=== PATIENT | male | born 1965 | race Caucasian/White ===

== ENCOUNTER 2020-12-30 10:49 | Inpatient (IN) | payer BC, SELFPAY ==
[2020-12-30] VITALS (10 sets, daily range): BP systolic 108–189; BP diastolic 53–143; PULSE 63–93; RESP 12–18; O2SAT 95–98; BMI 22.4
--- NOTE | ~2020-12-30 | MR_ITS ---
EXAMINATION: MR BRAIN WITHOUT AND WITH CONTRAST CLINICAL INFORMATION: Pituitary fullness. COMPARISON: CT head from 12/30/2020 the TECHNIQUE: MRI of the brain was obtained using routine sequences without and following the administration of 3.5 mL of Gadavist intravenous contrast. FINDINGS: No focal restricted diffusion is demonstrated to suggest acute or subacute cerebral ischemia. No evidence of acute or chronic hemorrhagic products on heme-sensitive imaging. Scattered periventricular and deep white matter T2 FLAIR hyperintensities most commonly seen with mild underlying microangiopathy. The ventricles are normal in morphology and size. No abnormal mass effect. No midline shift. The pituitary gland measures 0.8 cm in craniocaudal dimension. Mild convex superior margin of the pituitary gland. Otherwise, normal morphology and signal intensity of the pituitary gland on precontrast imaging. An inherently T1 hyperintense nodule within the posterior sella turcica is located in the expected location of the posterior pituitary bright spot but also appears mildly prominent. No demonstrated abnormal hyperenhancing or hypoenhancing lesions demonstrated on post contrast imaging. The pituitary infundibulum is normal in morphology and remains midline in position. The suprasellar cistern remains patent. No abnormal mass effect on the optic chiasm. Normal positioning of the cerebellar tonsils. Normal arterial and venous vascular flow voids are present. No abnormal contrast enhancement. Normal, homogeneous marrow signal. Moderate mucosal thickening of the paranasal sinuses. Most notably involving the right frontal and maxillary sinuses. Multiple mucus retention cyst within the right maxillary sinus. No signal abnormalities within the mastoids. MR/MR head/brain wo/w con IMPRESSION: 1. The pituitary gland is mildly prominent but otherwise morphologically normal without abnormal signal characteristics or demonstrated discrete lesions. 2. No acute intracranial abnormalities. No abnormal intracranial enhancement. 3. Mild chronic white matter changes most commonly seen in the setting of underlying microangiopathy. 4. Moderate sinonasal mucosal disease, most notably affecting the right frontal and maxillary sinuses.
--- NOTE | ~2020-12-30 | CT_ITS ---
EXAMINATION: CT HEAD WITHOUT CONTRAST CLINICAL INFORMATION: Hypertension with headache. COMPARISON: None TECHNIQUE: Contiguous axial imaging was performed from the skull base to vertex without intravenous administration of contrast. Additional 2-D coronal and sagittal reformatted images are generated on the CT workstation and uploaded to PACS. This CT examination was performed using dose optimization techniques as appropriate, variously including the following: *Automated exposure control *Adjustment of mA and/or kV according to patient size (this includes techniques or standardized protocols for targeted exams where dose is matched to indication/reason for exam; i.e. extremities or head) *Use of iterative reconstruction technique DLP: 641 mGy-cm FINDINGS: There is no intracranial hemorrhage, hematoma, or extra-axial fluid collection. The ventricles are normal in size. There is no hydrocephalus, edema, or mass effect. There is oval cystic area central right frontal lobe white matter with long axis pointed towards the frontal horn right lateral ventricle and overall size 0.5 x 1.0 cm. Finding is nonspecific, possibly perivascular space. The periventricular white matter is otherwise unremarkable. There is no visible acute territorial infarct. The pituitary appears fall with superior convexity and extending laterally towards the left cavernous sinus. There is incidental tonsillar ectopia suggested on the sagittal images. The calvarium appears intact. There is no pneumocephalus or orbital emphysema. There is scattered mucosal thickening throughout the ethmoid sinuses and mild mucosal thickening throughout the sphenoid. Probable retention cyst present within right maxillary sinus approximately 2.0 x 1.5 cm. The middle ears and mastoids appear clear. Results and recommendation are called and discussed with emergency department (Jax Kumar PA-C) at [address]/CT head/brain wo con IMPRESSION: 1. Fullness pituitary gland. Cystic lesion central right frontal lobe long axis toward right frontal horn, possibly perivascular space. Recommend further evaluation with brain MRI without and with gadolinium contrast using pituitary protocol. 2. Mucosal thickening paranasal sinuses. 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 No air-fluid levels. 3.No intracranial hemorrhage, hydrocephalus, or mass effect.
--- NOTE | 2020-12-30 12:23 | ED.GENADULT ---
HPI - General Adult General Chief complaint: General Medical <TIM Patricia Last Filed: 12/30/20 19:27> Stated complaint: high blood pressure <TIM Patricia Last Filed: 12/30/20 19:27> Time Seen by Provider: 12/30/20 12:06 <ITM Patricia Last Filed: 12/30/20 19:27> Source: patient <TIM Patricia Last Filed: 12/30/20 19:27> Mode of arrival: ambulatory <TIM Patricia Last Filed: 12/30/20 19:27> Limitations: no limitations <TIM Patricia Last Filed: 12/30/20 19:27> History of Present Illness HPI narrative: Patient presents to ED for headache for the past 2 days with nausea. Patient went to urgent care this morning and found to have blood pressure was really elevated. Patient states he was recently diagnosed with high blood pressure 5 months ago by his PCP did not put him on any medication. Patient denies any chest pain, shortness of breath, vomiting, neck pain, fever, chills, slurred speech, loss of vision, paralysis of extremities, or dizziness. <TIM Patricia Last Filed: 12/30/20 19:27> Related Data Home medications: Home Medications Medication Instructions Recorded Confirmed No Known Home Meds 12/30/20 12/30/20 <ITM Patricia Last Filed: 12/30/20 19:27> Allergies/adverse reactions: Allergies Allergy/AdvReac Type Severity Reaction Status Date / Time No Known Allergies Allergy Unverified 07/25/20 16:32 <TIM Patricia Last Filed: 12/30/20 19:27> Review of Systems Review of Systems: Yes all other systems are reviewed and are negative <TIM Patricia Last Filed: 12/30/20 19:27> Constitutional: Constitutional: Reports as per HPI, Reports no additional constitutional complaints and Reports headache(s) <TIM Patricia Last Filed: 12/30/20 19:27> Eyes: Eyes: Reports as per HPI and Reports no additional eye complaints <TIM Patricia Last Filed: 12/30/20 19:27> ENT: Reports system reviewed and no additional complaints, except as documented, Reports as per HPI and Reports headache(s) <TIM Patricia Last Filed: 12/30/20 19:27> Cardiovascular: Cardiovascular: Reports as per HPI and Reports no additional cardiovascular complaints <TIM Patricia Last Filed: 12/30/20 19:27> Respiratory: Respiratory: Reports as per HPI and Reports no additional respiratory complaints <TIM Patricia Last Filed: 12/30/20 19:27> Gastrointestinal: Gastrointestinal: Reports as per HPI, Reports no additional gastrointestinal complaints and Reports nausea <TIM Patricia Last Filed: 12/30/20 19:27> Genitourinary: Genitourinary: Reports no additional male genitourinary complaints and Reports as per HPI <TIM Patricia Last Filed: 12/30/20 19:27> Musculoskeletal: Musculoskeletal: Reports no additional musculoskeletal complaints and Reports as per HPI <TIM Patricia Last Filed: 12/30/20 19:27> Neurologic: Reports system reviewed and no additional complaints, except as documented, Reports as per HPI and Reports headache(s) <TIM Patricia Last Filed: 12/30/20 19:27> Psychiatric: Psychiatric: Reports no additional psychiatric complaints and Reports as per HPI <TIM Patricia Last Filed: 12/30/20 19:27> [facility] Past Medical History Surgical History: Surgical History (Updated 12/30/20 @ 17:27 by Keara Helms NP) History of esophagogastroduodenoscopy (EGD) <TIM Patricia Last Filed: 12/30/20 19:27> Social History Social History: Social History Alcohol intake: current Alcohol intake frequency: 0-2 drinks per day Smoking Status: Former smoker Use of substances other than those prescribed or required for medical reasons: No Advance Directives: No Advance Directives Information Provided: No <TIM Patricia Last Filed: 12/30/20 19:27> Physical Exam Vital Signs: Vital Signs: Last Vital Signs Pulse 76 12/30/20 19:04 Resp 18 12/30/20 19:04 BP 115/73 12/30/20 19:04 Pulse Ox 96 12/30/20 19:04 Body Mass Index 22.4 <TIM Patricia - Last Filed: 12/30/20 19:27> Vital Signs: Last Vital Signs Pulse 76 12/30/20 19:04 Resp 18 12/30/20 19:04 BP 115/73 12/30/20 19:04 Pulse Ox 96 12/30/20 19:04 Body Mass Index 22.4 <Mack Barnhart MD - Last Filed: 12/30/20 14:51> Const: General: cooperative, healthy appearing, comfortable, no acute distress, well developed, alert, awake and Physically active <TIM Patricia - Last Filed: 12/30/20 19:27> Orientation/consciousness: patient oriented x3 <TIM Patricia - Last Filed: 12/30/20 19:27> HENMT: Head: Yes normal to inspection, Yes No palpable skull fracture present, Yes normocephalic, Yes atraumatic and No abrasion <TIM Patricia Last Filed: 12/30/20 19:27> Eyes: General: appearance normal, both eyes and all related structures <TIM Patricia - Last Filed: 12/30/20 19:27> Neck: Other: Negative carotid bruit <TIM Patricia - Last Filed: 12/30/20 19:27> Neck: Yes normal visual inspection, Yes full ROM, Yes no lymphadenopathy, Yes no meningeal signs, Yes trachea midline, Yes supple and No tender <TIM Patricia Last Filed: 12/30/20 19:27> Chest: Chest palpation & inspection: normal inspection of the chest and normal palpation of entire chest wall <TIM Patricia - Last Filed: 12/30/20 19:27> Resp: Effort & Inspection: normal respiratory effort and able to speak in complete sentences <TIM Patricia Last Filed: 12/30/20 19:27> Auscultation: clear to auscultation bilaterally <TIM Patricia - Last Filed: 12/30/20 19:27> Cardio: Jugular venous distension: no JVD <TIM Patricia Last Filed: 12/30/20 19:27> Heart sounds: S1 normal heart sound present and S2 normal heart sound present <TIM Patricia Last Filed: 12/30/20 19:27> GI: Inspection: Yes normal to inspection and No abdominal wall ecchymosis <TIM Patricia Last Filed: 12/30/20 19:27> Palpation (GI): Soft to palpation, not firm, nontender, no guarding and not rigid <TIM Patricia - Last Filed: 12/30/20 19:27> : General: No CVA tenderness and Yes no CVA tenderness <TIM Patricia - Last Filed: 12/30/20 19:27> Back/Spine/Pelvis: Back: no CVA tenderness, No CVA tenderness and No back tenderness <TIM Patricia - Last Filed: 12/30/20 19:27> Skin: General skin exam: no rashes or lesions noted and elasticity normal <TIM Patricia - Last Filed: 12/30/20 19:27> Neuro: Other: Negative for slurred speech. Negative facial droop. All extremities have equal strength and 5+. Negative Romberg. [id number] test intact <TIM Patricia - Last Filed: 12/30/20 19:27> General: patient oriented x3, gait normal, no meningeal signs and CN's II-XI intact bilaterally <TIM Patricia Last Filed: 12/30/20 19:27> Cranial nerves: Yes CN's II-XII intact bilaterally <TIM Patricia - Last Filed: 12/30/20 19:27> Extrem: General: Yes normal to inspection and Yes full ROM <TIM Patricia Last Filed: 12/30/20 19:27> Psych: Appearance: grossly normal, well kempt and not disheveled <TIM Patricia Last Filed: 12/30/20 19:27> Course Course Course Narrative: Patient will be evaluated for hypertensive emergency. Negative for any neuro deficit. Patient have head CT. EKG, and labs. Repeat blood pressure monitor is 178/118. We will give labetalol 10 mg IV. Also ordered Tylenol <TIM Patricia Last Filed: 12/30/20 19:27> I have discussed the case and management with the MARY <Mack Barnhart MD - Last Filed: 12/30/20 14:51> Reevaluation(s) Reevaluation #1: Blood pressure now 235/114. Clonidine ordered. EKG negative for STEMI. Awaiting head CT and lab results. <TIM Patricia - Last Filed: 12/30/20 19:27> Time: 14:34 <TIM Patricia - Last Filed: 12/30/20 19:27> Reevaluation #2: Blood pressure presently is 149/87. Patient will be admitted for hypertensive urgency. Radiologist called earlier visit for CT scan reading of fullness of fissure. He states MRI with and without contrast/pituitary protocol can be do outpatient, but due to patient be admitted that was ordered in the ED. Patient presently stable. Troponin negative. Hospitalist accepted cased <TIM Patricia - Last Filed: 12/30/20 19:27> Time: 16:26 <TIM Patricia - Last Filed: 12/30/20 19:27> Medical Decision Making MDM Narrative Medical decision making narrative: Hypertensive urgency <TIM Patricia - Last Filed: 12/30/20 19:27> Lab Data Result diagrams: : 12/30/20 13:59 12/30/20 13:59 <TIM Patricia - Last Filed: 12/30/20 19:27> Labs: Lab Results 12/30/20 12/30/20 12/30/20 Range/Units 13:59 13:59 13:59 WBC 10.2 (4.8-10.8) X10*3/uL RBC 5.94 H (4.60-5.80) X10*6/uL Hgb 16.7 (14.0-18.0) g/dl Hct 50.0 (42-52) % MCV 84.2 (80-98) fL MCH 28.1 (27.0-33.0) pg MCHC 33.4 (31.0-36.0) g/dl RDW 13.2 (11.0-16.0) % Plt Count 276 (160-400) X10*3/uL MPV 10.6 (9.4-12.4) fL Immature Gran % (Auto) 0.3 (0.0-0.4) % Neut % (Auto) 71.8 (45-73) % Lymph % (Auto) 21.2 (20-40) % [place] % (Auto) 5.9 (2-11) % Eos % (Auto) 0.4 (0-4) % Baso % (Auto) 0.4 (0-2) % Lymph # (Auto) 2.2 (1.2-4.9) X10*3/uL [place] # (Auto) 0.6 (0.1-1.2) X10*3/uL Eos # (Auto) 0.0 (0.0-0.4) X10*3/uL Baso # (Auto) 0.0 (0.0-0.2) X10*3/uL Abs Immat Gran (auto) 0.03 (0.00-0.03) X10*3/uL Absolute Neuts (auto) 7.3 (2.0-8.3) X10*3/uL Absolute Nucleated RBC 0.000 (0.0-0.012) X10*3/uL Nucleated RBC % (auto) 0.0 (0.0-0.2) /100WBC PT 12.0 (10.8-13.0) SEC INR 1.0 (0.9-1.1) APTT 46.3 H (24.1-38.0) SEC Sodium 141 (135-145) mmol/L Potassium 4.0 (3.3-5.1) mmol/L Chloride 103 (96-108) mmol/L Carbon Dioxide 27 (22-29) mmol/L Anion Gap 15 (12-20) BUN 20 H (9-16) mg/dL Creatinine 1.04 (0.5-1.4) mg/dL Estim Creat Clear Calc 86.9 Estimated GFR > 60 Random Glucose 101 (60-115) mg/dL Calcium 9.9 (8.4-10.2) mg/dL Total Bilirubin 0.6 (0.0-1.0) mg/dL AST 13 (5-37) U/L ALT 20 (0-40) U/L Alkaline Phosphatase 84 (39-117) U/L Troponin I High Sens (<3.5-35.0) ng/L Total Protein 7.6 (6.5-8.0) g/dL Albumin 4.6 (3.5-5.0) g/dL TSH 1.05 (0.32-4.0) uIU/mL Urine Color Urine Appearance Urine pH (5.0-8.0) Ur Specific [place] (1.005-1.025) Urine Protein (NEG-TRACE) MG/DL Urine Glucose (UA) (NEG) MG/DL Urine Ketones (NEG) MG/DL Urine Blood (NEG) Urine Nitrite (NEG) Ur Leukocyte Esterase (NEG) Urine RBC (0) /HPF Urine WBC (0-4) /HPF Ur Squamous Epith Cells /LPF Urine Bacteria /LPF Urine Mucus /LPF COVID-19 (LOUISE) (Negative) COVID-19 Clin Com 12/30/20 12/30/20 12/30/20 Range/Units 13:59 13:59 16:19 WBC (4.8-10.8) X10*3/uL RBC (4.60-5.80) X10*6/uL Hgb (14.0-18.0) g/dl Hct (42-52) % MCV (80-98) fL MCH (27.0-33.0) pg MCHC (31.0-36.0) g/dl RDW (11.0-16.0) % Plt Count (160-400) X10*3/uL MPV (9.4-12.4) fL Immature Gran % (Auto) (0.0-0.4) % Neut % (Auto) (45-73) % Lymph % (Auto) (20-40) % [place] % (Auto) (2-11) % Eos % (Auto) (0-4) % Baso % (Auto) (0-2) % Lymph # (Auto) (1.2-4.9) X10*3/uL [place] # (Auto) (0.1-1.2) X10*3/uL Eos # (Auto) (0.0-0.4) X10*3/uL Baso # (Auto) (0.0-0.2) X10*3/uL Abs Immat Gran (auto) (0.00-0.03) X10*3/uL Absolute Neuts (auto) (2.0-8.3) X10*3/uL Absolute Nucleated RBC (0.0-0.012) X10*3/uL Nucleated RBC % (auto) (0.0-0.2) /100WBC PT (10.8-13.0) SEC INR (0.9-1.1) APTT (24.1-38.0) SEC Sodium (135-145) mmol/L Potassium (3.3-5.1) mmol/L Chloride (96-108) mmol/L Carbon Dioxide (22-29) mmol/L Anion Gap (12-20) BUN (9-16) mg/dL Creatinine (0.5-1.4) mg/dL Estim Creat Clear Calc Estimated GFR Random Glucose (60-115) mg/dL Calcium (8.4-10.2) mg/dL Total Bilirubin (0.0-1.0) mg/dL AST (5-37) U/L ALT (0-40) U/L Alkaline Phosphatase (39-117) U/L Troponin I High Sens 4.9 (<3.5-35.0) ng/L Total Protein (6.5-8.0) g/dL Albumin (3.5-5.0) g/dL TSH (0.32-4.0) uIU/mL Urine Color YELLOW Urine Appearance HAZY Urine pH 6.0 (5.0-8.0) Ur Specific [place] >= 1.030 H (1.005-1.025) Urine Protein TRACE (NEG-TRACE) MG/DL Urine Glucose (UA) NEG (NEG) MG/DL Urine Ketones NEG (NEG) MG/DL Urine Blood 1+ H (NEG) Urine Nitrite NEG (NEG) Ur Leukocyte Esterase NEG (NEG) Urine RBC 5-9 H (0) /HPF Urine WBC 5-9 H (0-4) /HPF Ur Squamous Epith Cells NONE /LPF Urine Bacteria NONE /LPF Urine Mucus 3+ /LPF COVID-19 (LOUISE) Negative (Negative) COVID-19 Clin Com See Note <TIM Patricia - Last Filed: 12/30/20 19:27> Lab Results 12/30/20 12/30/20 12/30/20 Range/Units 13:59 13:59 13:59 WBC 10.2 (4.8-10.8) X10*3/uL RBC 5.94 H (4.60-5.80) X10*6/uL Hgb 16.7 (14.0-18.0) g/dl Hct 50.0 (42-52) % MCV 84.2 (80-98) fL MCH 28.1 (27.0-33.0) pg MCHC 33.4 (31.0-36.0) g/dl RDW 13.2 (11.0-16.0) % Plt Count 276 (160-400) X10*3/uL MPV 10.6 (9.4-12.4) fL Immature Gran % (Auto) 0.3 (0.0-0.4) % Neut % (Auto) 71.8 (45-73) % Lymph % (Auto) 21.2 (20-40) % [place] % (Auto) 5.9 (2-11) % Eos % (Auto) 0.4 (0-4) % Baso % (Auto) 0.4 (0-2) % Lymph # (Auto) 2.2 (1.2-4.9) X10*3/uL [place] # (Auto) 0.6 (0.1-1.2) X10*3/uL Eos # (Auto) 0.0 (0.0-0.4) X10*3/uL Baso # (Auto) 0.0 (0.0-0.2) X10*3/uL Abs Immat Gran (auto) 0.03 (0.00-0.03) X10*3/uL Absolute Neuts (auto) 7.3 (2.0-8.3) X10*3/uL Absolute Nucleated RBC 0.000 (0.0-0.012) X10*3/uL Nucleated RBC % (auto) 0.0 (0.0-0.2) /100WBC PT 12.0 (10.8-13.0) SEC INR 1.0 (0.9-1.1) APTT 46.3 H (24.1-38.0) SEC Sodium 141 (135-145) mmol/L Potassium 4.0 (3.3-5.1) mmol/L Chloride 103 (96-108) mmol/L Carbon Dioxide 27 (22-29) mmol/L Anion Gap 15 (12-20) BUN 20 H (9-16) mg/dL Creatinine 1.04 (0.5-1.4) mg/dL Estim Creat Clear Calc 86.9 Estimated GFR > 60 Random Glucose 101 (60-115) mg/dL Calcium 9.9 (8.4-10.2) mg/dL Total Bilirubin 0.6 (0.0-1.0) mg/dL AST 13 (5-37) U/L ALT 20 (0-40) U/L Alkaline Phosphatase 84 (39-117) U/L Troponin I High Sens (<3.5-35.0) ng/L Total Protein 7.6 (6.5-8.0) g/dL Albumin 4.6 (3.5-5.0) g/dL TSH 1.05 (0.32-4.0) uIU/mL Urine Color Urine Appearance Urine pH (5.0-8.0) Ur Specific [place] (1.005-1.025) Urine Protein (NEG-TRACE) MG/DL Urine Glucose (UA) (NEG) MG/DL Urine Ketones (NEG) MG/DL Urine Blood (NEG) Urine Nitrite (NEG) Ur Leukocyte Esterase (NEG) Urine RBC (0) /HPF Urine WBC (0-4) /HPF Ur Squamous Epith Cells /LPF Urine Bacteria /LPF Urine Mucus /LPF COVID-19 (LOUISE) (Negative) COVID-19 Clin Com 12/30/20 12/30/20 12/30/20 Range/Units 13:59 13:59 16:19 WBC (4.8-10.8) X10*3/uL RBC (4.60-5.80) X10*6/uL Hgb (14.0-18.0) g/dl Hct (42-52) % MCV (80-98) fL MCH (27.0-33.0) pg MCHC (31.0-36.0) g/dl RDW (11.0-16.0) % Plt Count (160-400) X10*3/uL MPV (9.4-12.4) fL Immature Gran % (Auto) (0.0-0.4) % Neut % (Auto) (45-73) % Lymph % (Auto) (20-40) % [place] % (Auto) (2-11) % Eos % (Auto) (0-4) % Baso % (Auto) (0-2) % Lymph # (Auto) (1.2-4.9) X10*3/uL [place] # (Auto) (0.1-1.2) X10*3/uL Eos # (Auto) (0.0-0.4) X10*3/uL Baso # (Auto) (0.0-0.2) X10*3/uL Abs Immat Gran (auto) (0.00-0.03) X10*3/uL Absolute Neuts (auto) (2.0-8.3) X10*3/uL Absolute Nucleated RBC (0.0-0.012) X10*3/uL Nucleated RBC % (auto) (0.0-0.2) /100WBC PT (10.8-13.0) SEC INR (0.9-1.1) APTT (24.1-38.0) SEC Sodium (135-145) mmol/L Potassium (3.3-5.1) mmol/L Chloride (96-108) mmol/L Carbon Dioxide (22-29) mmol/L Anion Gap (12-20) BUN (9-16) mg/dL Creatinine (0.5-1.4) mg/dL Estim Creat Clear Calc Estimated GFR Random Glucose (60-115) mg/dL Calcium (8.4-10.2) mg/dL Total Bilirubin (0.0-1.0) mg/dL AST (5-37) U/L ALT (0-40) U/L Alkaline Phosphatase (39-117) U/L Troponin I High Sens 4.9 (<3.5-35.0) ng/L Total Protein (6.5-8.0) g/dL Albumin (3.5-5.0) g/dL TSH (0.32-4.0) uIU/mL Urine Color YELLOW Urine Appearance HAZY Urine pH 6.0 (5.0-8.0) Ur Specific [place] >= 1.030 H (1.005-1.025) Urine Protein TRACE (NEG-TRACE) MG/DL Urine Glucose (UA) NEG (NEG) MG/DL Urine Ketones NEG (NEG) MG/DL Urine Blood 1+ H (NEG) Urine Nitrite NEG (NEG) Ur Leukocyte Esterase NEG (NEG) Urine RBC 5-9 H (0) /HPF Urine WBC 5-9 H (0-4) /HPF Ur Squamous Epith Cells NONE /LPF Urine Bacteria NONE /LPF Urine Mucus 3+ /LPF COVID-19 (LOUISE) Negative (Negative) COVID-19 Clin Com See Note <Mack Barnhart MD - Last Filed: 12/30/20 14:51> ECG Data Interpretation: Normal sinus rhythm. Negative STEMI. Ventricular rate 74. Pr interval 150. QRS 102. QTC 441 <TIM Patricia - Last Filed: 12/30/20 19:27> Discharge Plan Discharge Clinical Impression: Hypertensive urgency <TIM Patricia - Last Filed: 12/30/20 19:27> Patient Disposition: Admitted As Inpatient <TIM Patricia - Last Filed: 12/30/20 19:27>
--- NOTE | 2020-12-30 12:55 | ECG_ITS ---
Test Reason : HYPERTENSIVE Blood Pressure : / mmHG Vent. Rate : 074 BPM Atrial Rate : 074 BPM P-R Int : 150 ms QRS Dur : 102 ms QT Int : 398 ms P-R-T Axes : 073 079 063 degrees QTc Int : 441 ms Normal sinus rhythm Possible Left atrial enlargement Left ventricular hypertrophy Abnormal ECG No previous ECGs available Referred By: Jax Granados Electronically Signed By:SABAS GONZALEZ MD
[2020-12-30 14:07] LABS: MANUAL DIFF FLAG NO
[2020-12-30 14:09] LABS: Basophils Percent Auto 0.4 % (0-2); Eosinophils Percent Auto 0.4 % (0-4); Hemoglobin 16.7 g/dl (14.0-18.0); Imm Gran Abs Auto 0.03 X10*3/uL (0.00-0.03); Imm Gran Pct Auto 0.3 % (0.0-0.4); Lymphocytes Absolute Auto 2.2 X10*3/uL (1.2-4.9); Lymphocytes Percent Auto 21.2 % (20-40); Mean Corpuscular HGB Conc 33.4 g/dl (31.0-36.0); Mean Corpuscular Hemoglobin 28.1 pg (27.0-33.0); Mean Corpuscular Volume 84.2 fL (80-98); Mean Platelet Volume 10.6 fL (9.4-12.4); Monocytes Absolute Auto 0.6 X10*3/uL (0.1-1.2); Monocytes Percent Auto 5.9 % (2-11); Neutrophils Absolute Auto 7.3 X10*3/uL (2.0-8.3); Neutrophils Percent Auto 71.8 % (45-73); Platelet Count 276 X10*3/uL (160-400); Red Blood Count 5.94 X10*6/uL (4.60-5.80); Red Cell Distribution Width 13.2 % (11.0-16.0); White Blood Count 10.2 X10*3/uL (4.8-10.8)
[2020-12-30 14:19] LABS: Partial Thromboplastin Time 46.3 SEC (24.1-38.0)
[2020-12-30 14:20] LABS: Glucose Urine UA NEG (NEG); Leukocyte Esterase Urine NEG (NEG); Nitrite Urine NEG (NEG); Specific Gravity - Urine >= 1.030 (1.005-1.025); Urine Blood 1+ (NEG); Urine Ketones NEG (NEG); Urine Protein TRACE MG/DL (NEG-TRACE)
[2020-12-30 14:22] LABS: Appearance Urine HAZY; Color Urine YELLOW
[2020-12-30] MEDS: Acetaminophen 325 MG TABLET 650 MG PO (14:23)
[2020-12-30] MEDS: Labetalol HCL 100 MG/20 ML VIAL 10 MG IVPUSH (14:24)
[2020-12-30 14:27] LABS: Mucus Urine 3+ /LPF; UACC CULT YES
--- NOTE | 2020-12-30 14:29 | PC.NURSE ---
no neuro deficits. headache is 2/10. mult questions about diet and habits answered.
[2020-12-30] MEDS: cloNIDine HCL 0.2 MG TABLET PO (14:44)
[2020-12-30 14:52] LABS: Alanine Aminotransferase 20 U/L (0-40); Albumin Level 4.6 g/dL (3.5-5.0); Alkaline Phosphatase 84 U/L (39-117); Anion Gap 15 (12-20); Aspartate Amino Transferase 13 U/L (5-37); Bilirubin Total 0.6 mg/dL (0.0-1.0); Blood Urea Nitrogen 20 mg/dL (9-16); Calcium 9.9 mg/dL (8.4-10.2); Carbon Dioxide 27 mmol/L (22-29); Chloride 103 mmol/L (96-108); Creatinine Clr Calc Pharmacy 86.9; Estimated Glomerular Filt Rate > 60; Glucose Random 101 mg/dL (60-115); Sodium 141 mmol/L (135-145); Total Protein 7.6 g/dL (6.5-8.0)
[2020-12-30 14:55] LABS: Troponin-I High Sensitivity 4.9 ng/L (<3.5-35.0)
[2020-12-30 15:54] LABS: Thyroid Stimulating Hormone 1.05 uIU/mL (0.32-4.0)
--- NOTE | 2020-12-30 16:08 | PC.NURSE ---
denies headache following tylenol. awaits MRI. agreable to admission.
[2020-12-30 16:54] LABS: COVID-19 Test Negative (Negative); IDNOW Serial# 9DD0AD1C
--- NOTE | 2020-12-30 17:26 | PM.IMHP ---
History of Present Illness Date of Service: 12/30/20 Chief Complaint: Headache 55-year-old man presented to the ER, with complaints of headache. He reports that over the last month he has had some issues with his blood pressure. He went to the dentist and they told him that they were not going to do a dental procedure because his blood pressure was too high. He did not know what the number was. He reports he then went to see his primary care provider and was told also that his blood pressure was high however he was never started on any antihypertensives. He reports that on Wednesday he had started to have a headache and then on Wednesday he developed a nausea vomiting and a continued headache. He reports on Wednesday can barely get out of bed. Today he went to see his primary care provider and they told him to come to the ER because his blood pressure was elevated. Blood pressure was as high as 181/143. He received labetalol and clonidine. He denied chest pain, shortness of breath, nausea, vomiting, diarrhea, fever, chills, recent travel, sick contacts. He denied any drug use or chronic alcohol use. He reported that he has no significant medical problems and does not take any medications. Incidentally, head CT showed fullness of the pituitary gland. No lab abnormalities noted. Other than blood pressure his vital signs are stable. He will be admitted for further management and treatment of hypertensive urgency and will also get an MRI and neurology consultation for the abnormal head CT. Review of Systems Review of Systems: Denies any recent fever chills or decrease in appetite respiratory denies any shortness of breath coverage production cardiovascular is adjustment of any PND or edema gastrointestinal denies any dysphagia abdominal pain nausea vomiting or diarrhea genitourinary denies any dysuria frequency or hematuria musculoskeletal denies any joint pain or swelling neuropsych See HPI all other systems reviewed are negative PMFSH Cognitive capacity: No significant medical problems Surgical History (Updated 12/30/20 @ 17:27 by Keara Helms NP) History of esophagogastroduodenoscopy (EGD) Social History Alcohol intake: current Alcohol intake frequency: 0-2 drinks per day Smoking Status: Former smoker Use of substances other than those prescribed or required for medical reasons: No Advance Directives: No Advance Directives Information Provided: No Meds Allergies Allergy/AdvReac Type Severity Reaction Status Date / Time No Known Allergies Allergy Unverified 07/25/20 16:32 Physical Exam Vital Signs and Narrative: Vital Signs: Last Vital Signs Pulse 78 12/30/20 16:08 Resp 18 12/30/20 16:08 BP 149/87 H 12/30/20 16:08 Pulse Ox 98 12/30/20 16:08 Body Mass Index 22.4 Appearing in no acute distress head is normocephalic atraumatic eyes pupils are PERRLA sclera is anicteric mouth throat mucous membranes are intact and moist neck is supple no lymphadenopathy, no JVD noted lung sounds are clear to auscultation heart regular rate rhythm, clear S1, S2 positive bowel sounds, abdomen is soft, nontender neuro patient is alert x3, no focal deficits Results Labs CBC and Chem 7: 12/30/20 13:59 12/30/20 13:59 Labs: Laboratory Results - last 24 hr 12/30/20 12/30/20 12/30/20 13:59 13:59 13:59 MCV 84.2 MCH 28.1 MCHC 33.4 RDW 13.2 Plt Count 276 MPV 10.6 Immature Gran % (Auto) 0.3 Neut % (Auto) 71.8 Lymph % (Auto) 21.2 [place] % (Auto) 5.9 Eos % (Auto) 0.4 Baso % (Auto) 0.4 Lymph # (Auto) 2.2 [place] # (Auto) 0.6 Eos # (Auto) 0.0 Baso # (Auto) 0.0 Abs Immat Gran (auto) 0.03 Absolute Neuts (auto) 7.3 Absolute Nucleated RBC 0.000 Nucleated RBC % (auto) 0.0 PT 12.0 INR 1.0 APTT 46.3 H Anion Gap 15 Estim Creat Clear Calc 86.9 Estimated GFR > 60 Random Glucose 101 Calcium 9.9 Total Bilirubin 0.6 AST 13 ALT 20 Alkaline Phosphatase 84 Troponin I High Sens Total Protein 7.6 Albumin 4.6 TSH 1.05 Urine Color Urine Appearance Urine pH Ur Specific [place] Urine Protein Urine Glucose (UA) Urine Ketones Urine Blood Urine Nitrite Ur Leukocyte Esterase Urine RBC Urine WBC Ur Squamous Epith Cells Urine Bacteria Urine Mucus COVID-19 ([facility]OU[facility]) COVID-19 Clin Com 12/30/20 12/30/20 12/30/20 13:59 13:59 16:19 MCV MCH MCHC RDW Plt Count MPV Immature Gran % (Auto) Neut % (Auto) Lymph % (Auto) [place] % (Auto) Eos % (Auto) Baso % (Auto) Lymph # (Auto) [place] # (Auto) Eos # (Auto) Baso # (Auto) Abs Immat Gran (auto) Absolute Neuts (auto) Absolute Nucleated RBC Nucleated RBC % (auto) PT INR APTT Anion Gap Estim Creat Clear Calc Estimated GFR Random Glucose Calcium Total Bilirubin AST ALT Alkaline Phosphatase Troponin I High Sens 4.9 Total Protein Albumin TSH Urine Color YELLOW Urine Appearance HAZY Urine pH 6.0 Ur Specific [place] >= 1.030 H Urine Protein TRACE Urine Glucose (UA) NEG Urine Ketones NEG Urine Blood 1+ H Urine Nitrite NEG Ur Leukocyte Esterase NEG Urine RBC 5-9 H Urine WBC 5-9 H Ur Squamous Epith Cells NONE Urine Bacteria NONE Urine Mucus 3+ COVID-19 (LOUISE) Negative COVID-19 Clin Com See Note Imaging Radiologist's Impressions: Impressions Head CT 12/30/20 12:15 IMPRESSION: 1. Fullness pituitary gland. Cystic lesion central right frontal lobe long axis toward right frontal horn, possibly perivascular space. Recommend further evaluation with brain MRI without and with gadolinium contrast using pituitary protocol. 2. Mucosal thickening paranasal sinuses. 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 No air-fluid levels. 3.No intracranial hemorrhage, hydrocephalus, or mass effect. Assessment and Plan (1) Hypertensive urgency: Status: Acute (2) Headache: Status: Acute 55-year-old man admitted with hypertensive urgency. Resolved with labetalol and clonidine. No history of hypertension in the past. Hypertensive urgency. Resolved. Follow blood pressure closely. Headache. Likely related to hypertensive urgency. Tylenol for pain. Pituitary gland abnormality. Will obtain MRI, Neurology consultation. Will require outpatient workup if MRI is negative. DVT prophylaxis with Lovenox Case discussed with Dr. Urban Full code
--- NOTE | 2020-12-30 21:30 | MHC.CM.PN ---
CM met with pt. A&Ox3. Lives alone. Was in [employer]. Is not vet connected. Employed. No HCP. Educated. Will consider, has to think about who he would name. Encouraged pt to consider and can complete at MD office. D/C plan is home without services. Pt to arrange transportation. [place] [facility] [place] CM to follow for d/c needs.
[2020-12-31] MEDS: 0.9 % Sodium Chloride Flush 3 ML SYRINGE IVFLUSH ×2 (00:21→11:46)
[2020-12-31 06:53] LABS: Hematocrit 45.9 % (42-52); Hemoglobin 14.9 g/dl (14.0-18.0); Mean Corpuscular HGB Conc 32.5 g/dl (31.0-36.0); Mean Corpuscular Hemoglobin 27.7 pg (27.0-33.0); Mean Corpuscular Volume 85.3 fL (80-98); Mean Platelet Volume 10.7 fL (9.4-12.4); Platelet Count 233 X10*3/uL (160-400); Red Blood Count 5.38 X10*6/uL (4.60-5.80); Red Cell Distribution Width 13.2 % (11.0-16.0); White Blood Count 7.7 X10*3/uL (4.8-10.8)
[2020-12-31 07:12] LABS: Anion Gap 13 (12-20); Blood Urea Nitrogen 29 mg/dL (9-16); Calcium 9.7 mg/dL (8.4-10.2); Carbon Dioxide 29 mmol/L (22-29); Chloride 103 mmol/L (96-108); Creatinine Clr Calc Pharmacy 71.2; Estimated Glomerular Filt Rate 59; Glucose Random 95 mg/dL (60-115); Potassium 4.3 mmol/L (3.3-5.1); Sodium 141 mmol/L (135-145)
[2020-12-31 07:35] VITALS: BP 118/72; PULSE 68; RESP 18
[2020-12-31 08:00] VITALS: BP 132/74; PULSE 71; RESP 16; TEMP 36.2; O2SAT 93
[2020-12-31 12:00] VITALS: BP 149/92; PULSE 72; RESP 17; TEMP 36.8; O2SAT 97
[2020-12-31 15:42] VITALS: BP 139/88; PULSE 73; RESP 15; TEMP 36.6; O2SAT 94
--- NOTE | 2020-12-31 16:54 | P.DS_ITS ---
DS: Providers Provider Date of Service: 01/02/21 Date of admission: 12/30/20 17:26 Primary care physician: Carlos Finch MD Consults: 12/31/20 08:01 Consult to Neurology Routine Consulting Provider: [facility] Reason for consultation: pituray lesion DS: Diagnosis Discharge Diagnosis (1) Hypertensive urgency: Status: Acute (2) Headache: Status: Acute Problem details: The headache appeared to be related to his hypertension and have resolved. There is no evidence of a pituitary tumor on MRI DS: Medications Discharge Medications Home Medications: Previous Rx's Medication Instructions Recorded amlodipine 2.5 mg PO DAILY #30 tab 12/31/20 DS: Summary Hospital Course Hospital Course: HPI 55-year-old man presented to the ER, with complaints of headache. He reports that over the last month he has had some issues with his blood pressure. He went to the dentist and they told him that they were not going to do a dental procedure because his blood pressure was too high. He did not know what the number was. He reports he then went to see his primary care provider and was told also that his blood pressure was high however he was never started on any antihypertensives. He reports that on Wednesday he had started to have a headache and then on Wednesday he developed a nausea vomiting and a continued headache. He reports on Wednesday can barely get out of bed. Today he went to see his primary care provider and they told him to come to the ER because his blood pressure was elevated. Blood pressure was as high as 181/143. He received labetalol and clonidine. He denied chest pain, shortness of breath, nausea, vomiting, diarrhea, fever, chills, recent travel, sick contacts. He denied any drug use or chronic alcohol use. He reported that he has no significant medical problems and does not take any medications. Incidentally, head CT showed fullness of the pituitary gland. No lab abnormalities noted. Other than blood pressure his vital signs are stable. He will be admitted for further management and treatment of hypertensive urgency and will also get an MRI and neurology consultation for the abnormal head CT. Hospital course 55-year-old male admitted with hypertensive urgency received clonidine and labetalol on admission with improvement in blood pressure, CT head on admission shows possible pituitary lesion, neurology was consulted, MRI brain was done , MRI shows no pituitary lesions,neurology reconciled no pitutary tumour and headache from uncontrolled HTN and recomended BP control , patient's blood pressure improved and remains stable, patient was discharged home on amlodipine 5 mg, patient will follow-up PCP as outpatient Time Spent with Patient Time attestation: Total time spent providing and/or coordinating discharge services: Discharge coordination time: Greater than 30 minutes Physical Exam Vital Signs: Vital Signs: Last Vital Signs Temp 97.9 F 12/31/20 15:42 Pulse 73 12/31/20 15:42 Resp 15 12/31/20 15:42 BP 139/88 12/31/20 15:42 Pulse Ox 94 12/31/20 15:42 Body Mass Index 22.4 DS: Data Data Completed and Pending Labs on day of discharge: Laboratory Results - last 24 hr 12/30/20 12/30/20 12/31/20 13:59 16:19 06:21 WBC 7.7 RBC 5.38 Hgb 14.9 Hct 45.9 MCV 85.3 MCH 27.7 MCHC 32.5 RDW 13.2 Plt Count 233 MPV 10.7 Absolute Nucleated RBC 0.000 Nucleated RBC % (auto) 0.0 Sodium Potassium Chloride Carbon Dioxide Anion Gap BUN Creatinine Estim Creat Clear Calc Estimated GFR Random Glucose Calcium Prolactin 2.0 COVID-19 (LOUISE) Negative COVID-19 Useful Systems Com See Note 12/31/20 06:21 WBC RBC Hgb Hct MCV MCH MCHC RDW Plt Count MPV Absolute Nucleated RBC Nucleated RBC % (auto) Sodium 141 Potassium 4.3 Chloride 103 Carbon Dioxide 29 Anion Gap 13 BUN 29 H Creatinine 1.27 Estim Creat Clear Calc 71.2 Estimated GFR 59 Random Glucose 95 Calcium 9.7 Prolactin COVID-19 (LOUISE) COVID-19 Clin Com Discharge Plan Discharge Anticipated Discharge Date/Time: 12/31/20 16:52 Patient Disposition: Home, Self-Care Referrals: Carlos Finch MD [Primary Care Provider] - Discharge Medications: New amlodipine 2.5 mg tablet 2.5 mg PO DAILY Qty: 30 RF: 0 Discharge Orders: Discharge Order (Routine); Ordered 12/31/20 Ordered By: Jeff Urban Diet: low salt diet Activity on Discharge: As tolerated Stand Alone Forms: Patient Portal Discharge page Care Plan Goals: treat HTN Health Concerns: HTN Plan of Treatment: see above Patient Instructions: Amlodipine (By mouth) Discharge Date/Time: 12/31/20 17:38
--- NOTE | 2020-12-31 16:56 | P.CNNE_ITS ---
History of Present Illness Data of Consult Service Date: 12/31/20 Primary Care Provider: Carlos Finch MD HPI Reason for consult: Headaches, hypertensive urgency and a possible pituitary tumor This is a 54-year-old man generally in good health was found to have hypertension recently during a dental visit and has had fluctuating blood pressure. He's also been suffering from increasing headaches in the last month. He was admitted with a blood pressure of for 180/140 with severe headaches. His blood pressure has come down with treatment. I was asked to evaluate him regarding possible pituitary fullness on the CT scan. He is since had an MRI of the brain with pituitary protocol and that appears normal. His headaches have resolved. Review of Systems 2 Eyes: Eyes: Reports no additional eye complaints ENT: Reports system reviewed and no additional complaints, except as documented and Reports Normal hearing present Cardiovascular: Cardiovascular: Reports no additional cardiovascular complaints Respiratory: Respiratory: Reports no additional respiratory complaints Gastrointestinal: Gastrointestinal: Reports no additional gastrointestinal complaints Genitourinary: Genitourinary: Reports no additional male genitourinary complaints Musculoskeletal: Musculoskeletal: Reports no additional musculoskeletal complaints Integumentary/Breasts: Skin/Breast: Reports system reviewed and no additional complaints, except as docu Neurologic: Reports as per HPI and Reports Normal hearing present Psychiatric: Psychiatric: Reports as per HPI Endocrine: Endocrine: Reports no additional endocrine complaints Hematologic/Lymphatic: Hematologic/Lymphatic: Reports no additional hematologic/lymphatic complaints Allergic/Immunologic: Allergic/Immunologic: Reports no additional allergic/immunologic complaints [facility] Surgical History Surgical History (Updated 12/30/20 @ 17:27 by Keara Helms NP) History of esophagogastroduodenoscopy (EGD) Social History Social History Household Members: None Housing: Apartment Do you presently have visiting nurse or other home services: No Alcohol intake: current Alcohol intake frequency: 0-2 drinks per day Smoking Status: Former smoker Use of substances other than those prescribed or required for medical reasons: No Have you been hit, kicked, punched, or otherwise hurt by someone within the past year? If so, by whom?: No Do you feel safe in your current relationship?: Yes Is there a partner from a previous relationship who is making you feel unsafe now?: No Are you made to feel afraid or neglected: No Advance Directives: No Advance Directives Information Provided: No Do you have thoughts of harming others: None Do you have a plan to hurt others: No Plan Recently lost weight without trying: No service: Yes Current occupational status: employed Meds Allergies Allergy/AdvReac Type Severity Reaction Status Date / Time No Known Allergies Allergy Unverified 07/25/20 16:32 Active Medications: Current Medications Generic Name Dose Route Start Last Admin Trade Name Mataq PRN Reason Stop Dose Admin Acetaminophen 650 mg 12/30/20 17:26 Acetaminophen 325 Mg Tablet PO Q6H PRN Pain, Mild (Pain Scale 1-3) Sodium Chloride 3 ml 12/31/20 00:00 12/31/20 11:46 0.9 % Sodium Chloride Flush 3 Ml Syringe IVFLUSH 3 ml QSHIFT UYEN Administration Physical Exam Vital Signs: Vital Signs: Last Vital Signs Temp 97.9 F 12/31/20 15:42 Pulse 73 12/31/20 15:42 Resp 15 12/31/20 15:42 BP 139/88 12/31/20 15:42 Pulse Ox 94 12/31/20 15:42 Body Mass Index 22.4 Const: General: cooperative, comfortable, no acute distress, well developed, alert and awake Nutritional Appearance: well nourished Orientation/consciousness: oriented to person, oriented to place and oriented to time Limitations: no limitations HENMT: Head: Yes normal to inspection, Yes normocephalic and Yes atraumatic Ears: hearing grossly normal bilaterally General nose exam: Normal external nose present Face and sinus: Yes normal facial exam Mouth: Normal oral and palatal mucosa present Eyes: General: appearance normal, both eyes and all related structures Visual Nunez: normal visual nunez by confrontation Alignment and Position: alignment normal Periorbital: periorbital findings normal Eyelids: Yes eyelids normal Conjunctivae: conjunctivae normal Sclerae: sclerae normal Corneas: corneas normal Pupils: Equal, round and reactive pupils present and Pupil accommodation reflex normal EOM: EOMs intact bilaterally Direct Ophthalmoscopy: normal light reflex Neck: Neck: Yes normal visual inspection, Yes full ROM and Yes no meningeal signs Thyroid: Thyroid normal Carotids: normal carotid upstroke and bounding pulses Chest: Chest palpation & inspection: normal inspection of the chest Resp: Effort & Inspection: normal respiratory effort Auscultation: clear to auscultation bilaterally Cardio: Rate: regular rate Rhythm: regular rhythm Heart sounds: S1 normal heart sound present and S2 normal heart sound present Peripheral pulses: Peripheral pulses 2+ throughout GI: Inspection: Yes normal to inspection Percussion: Yes normal to percussion Auscultation: normal bowel sounds Rectal Exam - Male: Yes deferred Back/Spine/Pelvis: Cervical Spine: normal cervical lordosis and cervical ROM normal Thoracic/Lumbar Spine: thoracic and lumbar spine normal to inspection Skin: General skin exam: no rashes or lesions noted Neuro: General: oriented to person, oriented to place, oriented to time, gait normal, tone normal, moves all extremities, Normal light touch and pain sensation, no meningeal signs, no focal motor deficits, CN's II-XI intact bilaterally, normal sensation to monofilament and deep tendon reflexes 2+ bilaterally Cranial nerves: Yes CN's II-XII intact bilaterally, Yes Equal, round and reactive pupils present, Yes Bilaterally intact EOM present, Yes Nystagmus not present, Yes Normal facial strength present, Yes Midline tongue present, Yes Normal gag reflex present, Yes Symmetric palate elevation present, Yes Normal hearing present and Yes Ability to bilaterally rotate head present Cognition (Neuro): normal cognition Speech: Other speech findings present (Neuro) Gait exam (Neuro): Normal gait present Motor exam (neuro): 5/5 motor strength present throughout, Pronator motor function not present, no tremor noted, no asterixis, Motor fasciculations not present, Normal motor muscle tone present throughout and Motor abnormalities not present Sensory Exam: Bilaterally intact graphesthesia Deep tendon reflexes (DTR's): Right triceps reflex intensity grade: 2+, Left triceps reflex intensity grade: 2+, Rt Biceps (C5, C6): 2+, Left biceps reflex intensity grade: 2+, Right brachioradialis reflex intensity grade: 2+, Left brachioradialis reflex intensity grade: 2+, Right patellar reflex intensity grade: 2+, Left patellar reflex intensity grade: 2+, Right ankle reflex intensity grade: 2+ and Left ankle reflex intensity grade: 2+ Plantar Reflex Responses: downgoing: right, left and bilateral Coordination: [id number] test normal, [id number] test normal, tandem gait normal and Romberg test negative Pupils: Normal pupillary reactivity/response: bilateral Extrem: General: Yes normal to inspection, Yes normal exam except as noted and Yes no pedal edema Psych: Appearance: grossly normal Mental Status: mental status grossly normal Speech and movement: Normal speech and movement present and Clear speech present Affect: normal affect Attitude: cooperative Thought process: Normal thought process present Results Labs CBC & Chem 7: 12/31/20 06:21 12/31/20 06:21 Labs: Short CBC 12/31/20 Range/Units 06:21 WBC 7.7 (4.8-10.8) X10*3/uL Hgb 14.9 (14.0-18.0) g/dl Hct 45.9 (42-52) % Plt Count 233 (160-400) X10*3/uL BMP 12/31/20 06:21 Sodium 141 Potassium 4.3 Chloride 103 Carbon Dioxide 29 BUN 29 H Creatinine 1.27 Calcium 9.7 Microbiology Microbiology Results: Microbiology 12/30/20 13:51 Urine clean catch - Clean Catch Midstream Urine Culture - Final No growth. Assessment and Plan (1) Headache: Problem details: The headache appeared to be related to his hypertension and have resolved. There is no evidence of a pituitary tumor on MRI Status: Acute Control of blood pressure and close followup Procedures Date of Service Date of Service: 12/31/20
== END 2020-12-31 17:38 | disposition home or self-care (01) | DRG 199 ==
LOC: HO.ED 12:08 → HO.EDOVER 17:56 → HO.S3 12-31 07:05
PROVIDERS: Nurse Practitioner Acute Care; Physician Assistant; Admitting Provider Internal Medicine; Emergency Provider Internal Medicine; PCP Family Medicine; Visit Provider Internal Medicine
DX: I16.0 Hypertensive urgency (principal); Z20.822 Contact with and (suspected) exposure to COVID-19; Z87.891 Personal history of nicotine dependence; Z79.899 Other long term (current) drug therapy
CPT/HCPCS: 36415; 70450; 70553; 80048; 80053; 81001; 84146; 84443; 84484; 85025; 85027; 85610; 85730; 87086; 87635; 93005; 96374; 96375; 99285; A9585

== ENCOUNTER 2024-10-05 13:41 | Emergency (ER) | payer BC, SELFPAY ==
--- NOTE | ~2024-10-05 | CT_ITS ---
EXAMINATION: CT HEAD WITHOUT CONTRAST EXAMINATION: NONCONTRAST HEAD CT INDICATION INFORMATION: Syncope COMPARISON: MRI brain 12/30/2020 TECHNIQUE: Noncontrast CT examinations of the head was performed. Coronal and sagittal images were created for each examination at the technologist workstation. This CT examination was performed using dose optimization techniques as appropriate, variously including the following: *Automated exposure control *Adjustment of mA and/or kV according to patient size (this includes techniques or standardized protocols for targeted exams where dose is matched to indication/reason for exam; i.e. extremities or head) *Use of iterative reconstruction technique DLP: 1056 mGy-cm FINDINGS: Head: There is no evidence of acute intracranial hemorrhage or territorial infarction. No abnormal mass effect or midline shift is seen. Garcia to white matter differentiation is well preserved. No extra-axial fluid collections are identified. No hydrocephalus. No significant volume loss. There is no abnormal attenuation within the brain parenchyma. No acute osseous or soft tissue abnormality. Mucosal thickening in the right maxillary sinus ethmoid air cells and in the bilateral maxillary sinuses CT/CT head/brain wo IV con IMPRESSION: No acute intracranial pathology. Electronically signed by: Denny Dawn MD 10/05/2024 06:09 PM [facility]IM[facility]
--- NOTE | ~2024-10-05 | CT_ITS ---
EXAMINATION: CT ABDOMEN AND PELVIS WITH CONTRAST CLINICAL INFORMATION: Nausea, vomiting, abdominal pain COMPARISON: None available. TECHNIQUE: Multidetector volumetric images were obtained from the superior aspect of the liver through the pubic symphysis following administration 85 mL of Omnipaque 350 intravenous contrast. Sagittal and coronal reformatted images were obtained on the technologist's workstation. Oral contrast: No This CT examination was performed using dose optimization techniques as appropriate, variously including the following: *Automated exposure control *Adjustment of mA and/or kV according to patient size (this includes techniques or standardized protocols for targeted exams where dose is matched to indication/reason for exam; i.e. extremities or head) *Use of iterative reconstruction technique DLP: 1056 mGy-cm FINDINGS: LUNG BASES: The visualized lung bases are unremarkable. LIVER, GALLBLADDER, AND BILIARY TREE: The liver is normal in size, shape, and attenuation. No focal hepatic lesion or biliary ductal dilatation is present. The gallbladder is unremarkable with no evidence of radiopaque gallstones, gallbladder wall thickening, or obvious pericholecystic inflammatory changes. PANCREAS: Unremarkable. SPLEEN: Unremarkable. ADRENAL GLANDS: Unremarkable. KIDNEYS AND URETERS: The kidneys are normal in size. Punctate bilateral renal stones. No hydronephrosis. BLADDER: Unremarkable. GASTROINTESTINAL TRACT: The large and small bowel are normal in caliber. Colonic diverticulosis without evidence of diverticulitis. ABDOMINAL WALL: No significant hernia is appreciated. LYMPH NODES: Normal. VASCULAR: Unremarkable. PELVIC VISCERA: The prostate is enlarged. OSSEOUS STRUCTURES: Unremarkable. CT/CT abdomen pelvis w IV con IMPRESSION: Punctate bilateral renal stones. No hydronephrosis or perinephric stranding. Fleischner guidelines were followed. Electronically signed by: Torsten Mcdermott MD 10/05/2024 06:14 PM MICHAEL
[2024-10-05 13:44] VITALS: BP 130/80; PULSE 110; O2SAT 99
[2024-10-05 13:49] VITALS: BP 150/81; PULSE 80; RESP 19; TEMP 36.6; O2SAT 98; BMI 21.2
[2024-10-05 14:05] LABS: MANUAL DIFF FLAG NO
[2024-10-05] MEDS: 0.9 % Sodium Chloride 1,000 ML 999 ML IV (14:05)
[2024-10-05] MEDS: ondansetron HCL 4 MG/2 ML VIAL IVPUSH (14:07)
[2024-10-05 14:12] LABS: Basophils Absolute Auto 0.1 X10*3/uL (0.0-0.2); Basophils Percent Auto 0.3 % (0-2); Eosinophils Percent Auto 0.1 % (0-4); Hematocrit 47.9 % (42.0-52.0); Hemoglobin 16.7 g/dl (14.0-18.0); Imm Gran Pct Auto 0.5 % (0.0-0.4); Lymphocytes Absolute Auto 1.9 X10*3/uL (1.2-4.9); Mean Corpuscular HGB Conc 34.9 g/dl (31.0-36.0); Mean Corpuscular Hemoglobin 28.4 pg (27.0-33.0); Mean Corpuscular Volume 81.3 fL (80.0-98.0); Mean Platelet Volume 10.5 fL (9.4-12.4); Monocytes Absolute Auto 1.3 X10*3/uL (0.1-1.2); Monocytes Percent Auto 7.1 % (2-11); Neutrophils Absolute Auto 15.3 x10*3/uL (2.0-8.3); Platelet Count 342 X10*3/uL (160-400); Red Blood Count 5.89 X10*6/uL (4.60-5.80); Red Cell Distribution Width 13.1 % (11.0-16.0); White Blood Count 18.6 X10*3/uL (4.8-10.8)
[2024-10-05 14:22] LABS: Alanine Aminotransferase 25 U/L (0-40); Albumin Level 4.7 g/dL (3.5-5.0); Alkaline Phosphatase 75 U/L (39-117); Anion Gap 20 (12-20); Aspartate Amino Transferase 32 U/L (5-37); Bilirubin Direct 0.2 mg/dL (0.0-0.5); Bilirubin Total 0.6 mg/dL (0.0-1.0); Blood Urea Nitrogen 32 mg/dL (9-16); Calcium 10.8 mg/dL (8.4-10.2); Carbon Dioxide 24 mmol/L (22-29); Chloride 101 mmol/L (96-108); Creatinine Clr Calc Pharmacy 66.5; Estimated Glomerular Filt Rate > 60; Glucose Random 127 mg/dL (60-115); Lipase 23 U/L (8-78); Potassium 3.5 mmol/L (3.3-5.1); Sodium 141 mmol/L (135-145)
--- NOTE | 2024-10-05 14:46 | ED_ITS ---
HPI - Nausea/Vomiting/Diarrhea General Chief complaint: Nausea/Vomiting/Diarrhea Stated complaint: VOMITING X 2 DAYS LIGHTHEADED Time Seen by Provider: 10/05/24 13:45 Source: patient and EMS Mode of arrival: EMS Limitations: no limitations History of Present Illness ED Provider: TIM Hernandez HPI Narrative: 59-year-old male history of hypertension, headaches presenting to the emergency department with nausea, vomiting, abdominal discomfort starting Wednesday after eating a taco from [employer] Reports taco was ground beef. Since then he has been having multiple episodes of nausea, vomiting, on Wednesday he had so many episodes of vomiting he had a syncopal episode he did not hit his head however he does report he lost complete consciousness. He reports that this has never happened to him before. No diarrhea or blood in stool, fevers, chills, chest pain, shortness of breath, headache, vision changes, dizziness or weakness. Related Data Previous Rx's ?Medication ?Instructions ?Recorded amlodipine 2.5 mg tablet 2.5 mg PO DAILY #30 tabs 12/31/20 ondansetron 4 mg disintegrating 4 mg PO Q6H PRN nausea and 10/05/24 tablet vomiting #14 tabs Allergies Allergy/AdvReac Type Severity Reaction Status Date / Time rats Allergy Unknown Uncoded 10/05/24 13:51 Review of Systems 2 Review of Systems: Yes all other systems are reviewed and are negative PMFSH Past Medical History Attestation statement: The following information was validated with the patient. Source: old records reviewed and nursing notes reviewed Surgical History History of esophagogastroduodenoscopy (EGD) Social History Social History Household Members: None Housing: Apartment Do you presently have visiting nurse or other home services: No Alcohol intake: current Alcohol intake frequency: 0-2 drinks per day Advance Directives: No Advance Directives Information Provided: Yes Do you have a plan to hurt others: No Plan service: Yes Current occupational status: employed Physical Exam 2 Vital Signs: Vital Signs: Last Vital Signs Temp 97.8 F 10/05/24 15:29 Pulse 75 10/05/24 15:29 Resp 12 10/05/24 15:29 BP 124/78 10/05/24 15:29 Pulse Ox 97 10/05/24 15:29 O2 Del Method Room Air 10/05/24 15:29 BMI result Body Mass Index 21.2 vss Appearance: Alert.? Oriented X3.? No acute distress.? Head: Normocephalic, atraumatic, no step-offs or deformities Eyes: Pupils equal, round and reactive to light.? CVS: Normal heart rate and rhythm.? Pulses normal.? Respiratory: No respiratory distress.? Breath sounds normal.? Abdomen: Soft and nontender.? Skin: Skin warm and dry.? Normal skin color.? Normal skin turgor.? Extremities: No lower extremity edema.? No calf ttp. 5/5 strength to bilateral upper and lower extremities Back: No midline tenderness, no C-spine tenderness, full range of motion, no CVA tenderness bilaterally Neuro: Oriented X 3.? No motor deficit.? No sensory deficit. CN 2-12 intact Course Reevaluation(s) Reevaluation #1: Patient with leukocytosis and left shift this is likely reactive secondary to nausea and vomiting. I do not suspect an infectious cause. Chemistry with no acute findings needing intervention. Normal lipase. CT scan pending. Patient did receive Zofran and fluids and states he is feeling better. Time: 14:52 Reevaluation #2: Signed out to Marycarmen enriquez [facility] if scan looks good Time: 16:11 Medications Administered Discontinued Medications Generic Name Dose Route Start Last Admin Trade Name Mataq PRN Reason Stop Dose Admin Sodium Chloride 1,000 mls @ 999 mls/hr 10/05/24 14:15 10/05/24 14:05 Ns IV 10/05/24 15:15 999 mls/hr .Q1H1M UYEN Administration Ondansetron HCl 4 mg 10/05/24 14:04 10/05/24 14:07 Ondansetron Hcl 4 Mg/2 Ml Vial IVPUSH 10/05/24 14:05 4 mg ONCE ONE Administration Medical Decision Making Medical Decision Making [facility] Narrative: 59-year-old male presents with nausea, vomiting and abdominal pain status post eating a taco if talk about on Wednesday. Also reports syncopal episode on Wednesday. No head strike however he did have a loss of consciousness. Not on blood thinners. Physical exam benign. History and physical exam concerning for gastroenteritis likely food poisoning and probably E coli. At this time there is a recall for ground beef and carrots. Unclear of the 48 was impacted by this. Will rule out metabolic derangements. Plan labs, imaging, Differential Diagnosis Differential Diagnoses: The differential diagnosis associated with the presentation includes (History and physical exam concerning for gastroenteritis likely food poisoning and probably E coli. At this time there is a recall for ground beef and carrots. Unclear of the 48 was impacted by this. Will rule out metabolic derangements.) Admission/Observation Consideration of admission/observation: Escalation of care including admission/observation considered Lab Data MDM Lab Attestation statement: I reviewed the patient's lab results. 10/05/24 14:02 10/05/24 14:02 Labs: Lab Results 10/05/24 10/05/24 Range/Units 14:02 16:02 WBC 18.6 H (4.8-10.8) X10*3/uL RBC 5.89 H (4.60-5.80) X10*6/uL Hgb 16.7 (14.0-18.0) g/dl Hct 47.9 (42.0-52.0) % MCV 81.3 (80.0-98.0) fL MCH 28.4 (27.0-33.0) pg MCHC 34.9 (31.0-36.0) g/dl RDW 13.1 (11.0-16.0) % Plt Count 342 (160-400) X10*3/uL MPV 10.5 (9.4-12.4) fL Immature Gran % (Auto) 0.5 H (0.0-0.4) % Neut % (Auto) 82.0 H (45-73) % Lymph % (Auto) 10.0 L (20-40) % [place] % (Auto) 7.1 (2-11) % Eos % (Auto) 0.1 (0-4) % Baso % (Auto) 0.3 (0-2) % Lymph # (Auto) 1.9 (1.2-4.9) X10*3/uL [place] # (Auto) 1.3 H (0.1-1.2) X10*3/uL Eos # (Auto) 0.0 (0.0-0.4) X10*3/uL Baso # (Auto) 0.1 (0.0-0.2) X10*3/uL Abs Immat Gran (auto) 0.10 H (0.00-0.03) X10*3/uL Absolute Neuts (auto) 15.3 H (2.0-8.3) x10*3/uL Absolute Nucleated RBC 0.000 (0.0-0.012) X10*3/uL Nucleated RBC % (auto) 0.0 (0.0-0.2) /100WBC Sodium 141 (135-145) mmol/L Potassium 3.5 (3.3-5.1) mmol/L Chloride 101 (96-108) mmol/L Carbon Dioxide 24 (22-29) mmol/L Anion Gap 20 (12-20) BUN 32 H (9-16) mg/dL Creatinine 1.23 (0.5-1.4) mg/dL Estim Creat Clear Calc 66.5 Estimated GFR > 60 Random Glucose 127 H (60-115) mg/dL Calcium 10.8 H D (8.4-10.2) mg/dL Magnesium 2.0 (1.6-2.6) mg/dL Total Bilirubin 0.6 (0.0-1.0) mg/dL Direct Bilirubin 0.2 (0.0-0.5) mg/dL AST 32 (5-37) U/L ALT 25 (0-40) U/L Alkaline Phosphatase 75 (39-117) U/L Troponin I High Sens 7.2 (<3.5-35.0) ng/L Total Protein 8.0 (6.5-8.0) g/dL Albumin 4.7 (3.5-5.0) g/dL Lipase 23 (8-78) U/L Urine Color Yellow Urine Appearance Clear Urine pH 7.0 (5.0-9.0) Ur Specific [place] 1.025 (1.005-1.025) Urine Protein 100 (2+) H (Neg-Trace) mg/dL Urine Glucose (UA) Negative (Negative) mg/dL Urine Ketones Trace (Negative) mg/dL Urine Blood Trace H (Negative) Urine Nitrite Negative (Negative) Ur Leukocyte Esterase Small (1+) H (Negative) Independent Interpretation I performed an independent interpretation of an: CT Scan Radiology Impression Discussion of test interpretation with radiology: I have reviewed the radiologist's reading. External Record Review External record reviewed: Office record, Outpatient record, Prior outpatient labs and Prior outpatient radiology Chronic Conditions Patient?s care impacted by: Hypertension and Other (see hpi ) Discharge Plan Discharge Clinical Impression: Gastroenteritis, Food poisoning Patient Disposition: Still a Patient Instructions: Gastroenteritis (ED), Food Poisoning (ED), Enteritis (ED) Additional Instructions: Take your medications as prescribed. If you were prescribed antibiotics today, it is important that you take your medication to their entirety, do not skip any doses, do not finish them early. Follow-up with your primary care provider this week. Return to the emergency department with new or worsening symptoms. Such as fevers, chills, chest pain, shortness of breath, nausea, vomiting, dizziness, headache, vision changes, lethargy In case of emergency call 911 Prescriptions: New ondansetron 4 mg tablet,disintegrating 4 mg PO Q6H PRN (Reason: nausea and vomiting) Qty: 14 0RF No Action amlodipine 2.5 mg tablet 2.5 mg PO DAILY Qty: 30 0RF Referrals: Carlos Finch MD [Primary Care Provider] - 2 days Stand Alone Forms: Work/School Release Print Language: Tajik
--- NOTE | 2024-10-05 14:50 | ECG_ITS ---
Test Reason : SYNCOPY Blood Pressure : / mmHG Vent. Rate : 082 BPM Atrial Rate : 082 BPM P-R Int : 148 ms QRS Dur : 096 ms QT Int : 396 ms P-R-T Axes : 075 077 067 degrees QTc Int : 462 ms Normal sinus rhythm Possible Left atrial enlargement Borderline ECG When compared with ECG of 30-DEC-2020 13:07, No significant change was found Referred By: Vickie Hernandez Electronically Signed By:DONNA HAMPTON
[2024-10-05 15:20] LABS: Troponin-I High Sensitivity 7.2 ng/L (<3.5-35.0)
[2024-10-05 15:29] VITALS: BP 124/78; PULSE 75; RESP 12; TEMP 36.6; O2SAT 97
[2024-10-05 16:07] LABS: Appearance Urine Clear; Color Urine Yellow; Glucose Urine UA Negative (Negative); Leukocyte Esterase Urine Small (1+) (Negative); Nitrite Urine Negative (Negative); Specific Gravity - Urine 1.025 (1.005-1.025); UMIC TRIGGER UACC YES; Urine Blood Trace (Negative); Urine Ketones Trace mg/dL (Negative); Urine Protein 100 (2+) mg/dL (Neg-Trace)
[2024-10-05 16:25] LABS: Troponin-I High Sensitivity 7.2 ng/L (<3.5-35.0)
[2024-10-05 16:33] LABS: Bacteria Urine None Seen (None Seen); Hyaline Casts Urine 0-2 /LPF (0-2); RBC Urine 0-2 /HPF (0-2); Squamous Epithelial Cell Urine 0-2 /HPF (0-2); UACC Culture Trigger YES; WBC Urine 0-5 /HPF (0-5)
[2024-10-05 16:37] LABS: Influenza A PCR NEGATIVE (Negative); Influenza B PCR NEGATIVE (Negative); Resp Syncy Virus RNA Qual PCR NEGATIVE (Negative); SARS COV2 PCR INHOUSE NEGATIVE (Negative)
[2024-10-05] MEDS: iohexoL 350 MG/ML 100 ML INFUS..BTL 85 ML IV (17:24)
[2024-10-05 18:22] VITALS: BP 144/84; PULSE 71; RESP 17; TEMP 36.8; O2SAT 97
[2024-10-05 20:45] VITALS: BP 152/83; PULSE 71; RESP 17; TEMP 36.8; O2SAT 97
== END 2024-10-05 20:45 | disposition home or self-care (01) ==
PROVIDERS: Physician Assistant; Emergency Provider Emergency Medicine Emergency Medical Services; PCP Family Medicine
DX: K52.9 Noninfective gastroenteritis and colitis, unspecified (principal); A05.9 Bacterial foodborne intoxication, unspecified; N20.0 Calculus of kidney; R10.9 Unspecified abdominal pain; Z03.818 Encounter for observation for suspected exposure to other biological agents ruled out
CPT/HCPCS: 0241U; 36415; 70450; 74177; 80048; 80076; 81001; 83690; 83735; 84484; 85025; 87086; 93005; 96361; 96374; 99284; J2405; Q9967

== ENCOUNTER → 2024-10-05 14:50 | Outpatient (BNV) | payer BC, SELFPAY | PROVIDERS: Emergency Provider Emergency Medicine Emergency Medical Services; PCP Family Medicine; Visit Provider Internal Medicine | DX: R55 Syncope and collapse (principal) | CPT/HCPCS: 93010 ==